=== PATIENT | female | born 1985 | race African-American/Black ===

== ENCOUNTER 2020-09-05 00:45 | Emergency (ER) | payer SELFPAY ==
[~2020-09-05] VITALS: Ht 167.6 cm; Wt 79.2 kg
[2020-09-05 00:51] VITALS: BP 145/93
[2020-09-05] MEDS ORDERED: IBUPROFEN 600MG TABLET PO ONE (01:30)
[2020-09-05] MEDS ORDERED: NAP5EC MT (02:25)
[2020-09-05] MEDS ORDERED: ACET-2708 MT (02:25)
== END 2020-09-05 02:43 | disposition home or self-care (01) ==
LOC: ER 01:01
DX: S52.502A Unspecified fracture of the lower end of left radius, initial encounter for closed fracture (principal); V00.138A Other skateboard accident, initial encounter; Y93.51 Activity, roller skating (inline) and skateboarding; Y92.9 Unspecified place or not applicable
CPT/HCPCS: 29125; 73090; 73110; 81025; 99284

== ENCOUNTER 2021-08-06 22:30 | Emergency (ER) | payer SELFPAY ==
[~2021-08-06] VITALS: Ht 167.6 cm; Wt 75.0 kg
[~2021-08-06 22:30] MED LIST: ACET-2708 MT; NAP5EC MT
[2021-08-06] MEDS ORDERED: IBUPROFEN 600MG TABLET PO ONE (22:45)
[2021-08-06 23:45] LABS: BASOPHILS % 0.6 % (0.0-2.0); HEMATOCRIT. 38.5 % (36.0-48.0); HEMOGLOBIN. 12.6 g/dL (12.0-16.0); LYMPHOCYTES % 22.6 % (20.0-50.0); MEAN CORPUSCULAR HEMOGLOBIN 30.4 pg (28.0-32.0); MEAN CORPUSCULAR VOLUME 93.1 fL (81.0-99.0); MEAN PLATELET VOLUME 7.6 fl (7.4-10.4); MONOCYTES % 11.6 % (2.0-8.0); NEUTROPHILS % 64.2 % (40.0-76.0); PLATELET 249 x1000/uL (130-400); RED BLOOD CELL COUNT 4.14 mill/uL (4.2-5.4); RED CELL DISTRIBUTION WIDTH 14.6 % (11.6-14.6)
[2021-08-06 23:54] LABS: CHLORIDE 110 mEq/L (98-107)
[2021-08-07] MEDS ORDERED: IBUP-2029 MT (00:42)
[2021-08-07 01:03] VITALS: BP 123/73
== END 2021-08-07 01:06 | disposition home or self-care (01) ==
LOC: ER 22:30
DX: M79.18 Myalgia, other site (principal); R07.9 Chest pain, unspecified; V89.2XXA Person injured in unspecified motor-vehicle accident, traffic, initial encounter; Y93.9 Activity, unspecified; Y92.410 Unspecified street and highway as the place of occurrence of the external cause
CPT/HCPCS: 36415; 71045; 80053; 85025; 93005; 99285